=== PATIENT | female | born 1990 | race American Indian/Alaskan Native ===

== ENCOUNTER 2018-05-02 13:16 | Inpatient (IN) | payer MEDICAID ==
[2018-05-02 14:43] LABS: Color,Urine Yellow (Yellow)
[2018-05-02 14:44] LABS: Bilirubin,Urine NEG (Negative); Blood,Urine SM (Negative); Mucus,Urine FEW /HPF; Protein,Urine <15 mg/dL mg/dL (Negative)
[2018-05-02] MEDS ORDERED: LACTATED RINGERS 500 ML IV ONE (15:03)
[2018-05-02] MEDS ORDERED: BRETHINE SUB-Q PRN (15:37)
[2018-05-02] MEDS ORDERED: ZOFRAN IV PRN ×2 (15:37→20:46)
[2018-05-02] MEDS ORDERED: MINERAL OIL PO PRN (15:37)
[2018-05-02] MEDS ORDERED: BRETHINE IVP PRN (15:37)
[2018-05-02] MEDS ORDERED: AMPICILLIN/NS 2 GM/100 ML 2 GM/100 ML BAG IV ONE (16:00)
[2018-05-02] MEDS ORDERED: PITOCin/NS 30 UNIT/500ML 30 UNITS/500 ML BAG IV SCH (16:00)
[2018-05-02] MEDS ORDERED: XYLOCAINE 2% INFILTRATI ONE (16:00)
[2018-05-02] MEDS ORDERED: PITOCin/NS 20 UNIT/1000ML DRIP 20 UNITS/1,000 ML BAG IV SCH (16:00)
--- NOTE | 2018-05-02 16:11 | History and Physical Report ---
History of Present Illness Date of examination: 05/02/18 Date of admission: 05/02/18 15:20 Chief complaint: Contractions History of present illness: 27 yo AA Fe LMP 08/11/2017, KOFFI 05/18/2018 (LMP), 37 weeks 5 days, presents in spontaneous labor. O positive, Rubella Immune, VDRL non-reactive, HBsAg Negative, HIV Negative, GBS unknown Pt initiated late care with [employer] at 21 weeks gestation. She is co-managed with [facility] ([place], Family Hx Down Syndrome (NIPS: low risk, and Macrosomia). Known History of HSV2. Positive Chlamydia and Gonorrhea (C&T 01/13/18, JOHN Negative 02/02/18). Pt has been noncompliant with care. Last visit in office 03/14/18. Last visit with [facility] 03/27/18 (EFW 99%, 2758 grams). 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 denies: abnormal PAP smear, hepatitis B, hepatitis C, HIV, syphilis, trichomonas Social history: no significant social history, single, Lives alone, smoking, full code. denies: alcohol abuse, prescription drug abuse, IV drug use - Obstetrical History Expected Date of Delivery: 05/18/18 Actual Gestation: 37 Week(s) 5 Day(s) : 3 Para: 2 Hx # Term Pregnancies: 2 Number of Pregnancies: 0 Spontaneous Abortions: 0 Induced : 0 Number of Living Children: 2 #1 Infant Gender: Female year: 2,012 Birthweight: 2.863 kg Method of Delivery: Vaginal Gestational age at delivery: 41 Complications: none #2 Infant Gender: Female year: 2,017 Birthweight: 3.26 kg Method of Delivery: Vaginal Gestational age at delivery: 40 Complications: none Medications and Allergies Allergies Allergy/AdvReac Type Severity Reaction Status Date / Time No Known Allergies Allergy Verified 07/09/13 03:13 Home Medications Medication Instructions Recorded Confirmed Last Taken Type Valacyclovir HCl [Valacyclovir] 500 mg PO DAILY 07/09/13 07/09/13 07/08/13 10:00 History 500mg Active Meds: Active Medications Ephedrine Sulfate (Ephedrine Sulfate) 10 mg IV Q2M PRN PRN Reason: Hypotension Ampicillin Sodium (Polycillin/Ns 2 Gm/100 Ml) 2 gm in 100 mls @ 100 mls/hr IV ONCE ONE; Protocol Stop: 05/02/18 16:59 Last Admin: 05/02/18 15:44 Dose: 100 mls/hr Documented by: Ampicillin Sodium (Ampicillin/Ns 1 Gm/50 Ml) 1 gm in 50 mls @ 100 mls/hr IV Q4H CELSO; Protocol Lactated Ringer's (Lactated Ringers) 1,000 mls @ 125 mls/hr IV DIRECT CELSO Oxytocin/Sodium Chloride (Pitocin/Ns 20 Unit/1000ml Drip) 20 units in 1,000 mls @ 125 mls/hr IV DIRECT CELSO Oxytocin/Sodium Chloride (Pitocin/Ns 30 Unit/500ml) 30 units in 500 mls @ 1 mls/hr IV TITR CELSO; Protocol Lidocaine (Xylocaine 2%) 20 ml INFILTRATI ONCE ONE Stop: 05/02/18 15:38 Mineral Oil (Mineral Oil) 30 ml PO QHS PRN PRN Reason: Constipation Ondansetron HCl (Zofran) 4 mg IV Q8H PRN PRN Reason: Nausea And Vomiting Terbutaline Sulfate (Brethine) 0.25 mg SUB-Q ONCE PRN PRN Reason: Hyperstimulation/Hypertonicity Terbutaline Sulfate (Brethine) 0.25 mg IVP ONCE PRN PRN Reason: Hyperstimulation/Hypertonicity Review of Systems Eyes: normal appearance Cardiovascular: no chest pain, no shortness of breath Respiratory: no shortness of breath Breasts: normal Gastrointestinal: no nausea, no vomiting, no diarrhea, no constipation Genitourinary: normal appearance, no vaginal bleeding, no leakage of fluid, no pelvic pain, no genital sores Integumentary: no rash, no sores, no lesions - Vital Signs Vital signs: Vital Signs Pulse BP 72 131/80 05/02/18 14:00 05/02/18 14:00 Temp Pulse Resp BP Pulse Ox 98.8 F 61 20 129/77 05/02/18 14:04 05/02/18 15:06 05/02/18 14:04 05/02/18 15:06 - Physical Exam Breasts: Positive: normal Cardiovascular: Regular rate, Normal S1, Normal S2, No murmurs Lungs: Positive: Clear to auscultation, Normal air movement Abdomen: Positive: normal appearance, soft, normal bowel sounds. Negative: distention Genitourinary (Female): Positive: normal external genitalia, normal perenium Vulva: both: normal Vagina: Positive: normal moisture Uterus: Positive: enlarged (Gravid) Anus/Rectum: Positive: normal perianal skin Extremities: Positive: normal - Obstetrical FHR: category 1 Uterine Contraction Monitor Mode: External Cervical Dilatation: 6 (Per gantry rigger) Cervical Effacement Percentage: 50 station: -2 Uterine Contraction Pattern: Regular Uterine Tone Measurement Phase: Resting Uterine Contraction Intensity: Moderate Results All other labs normal. Assessment and Plan A: , IUP at 37w5d HSV2 positive: on valtrex 500 BID Spontaneous labor Category 1 tracing GBS unknown Macrosomia ([facility]; LV 03/27 2758 grams, 99%) Noncompliant care (last visit 03/14/18) P: Admit to Labor and delivery Routine labor orders GBS prophylaxis Urine drug screen Anticipate
[2018-05-02 16:39] LABS: Basophils # (Auto) 0.1 K/mm3 (0.0-0.1); Basophils % (Auto) 0.7 % (0.0-1.8); Eosinophils # (Auto) 0.1 K/mm3 (0.0-0.4); Eosinophils % (Auto) 0.6 % (0.0-4.3); Hematocrit 35.9 % (30.3-42.9); Hemoglobin 11.9 gm/dl (10.1-14.3); Lymphocytes % (Auto) 22.7 % (13.4-35.0); Mean Corpuscular HGB Conc 33 % (30-34); Mean Corpuscular Volume 86 fl (79-97); Monocytes # (Auto) 0.8 K/mm3 (0.0-0.8); Monocytes % (Auto) 9.5 % (0.0-7.3); Platelet Count 158 K/mm3 (140-440); Red Blood Count 4.19 M/mm3 (3.65-5.03); Red Cell Distribution Width 15.5 % (13.2-15.2)
[2018-05-02] MEDS ORDERED: LACTATED RINGERS 1,000 ML IV SCH (17:00)
[2018-05-02] MEDS ORDERED: SUBLIMAZE IV ONE (17:20)
--- NOTE | 2018-05-02 18:20 | Procedure Note ---
OB Delivery Note - Delivery Date of Delivery: 05/02/18 (17:54) Surgeon: VALENTINO CONNELL (STEFFI) Estimated blood loss: 200cc - Vaginal Delivery presentation: vertex Delivery position: OA Intrapartum events: meconium (NICU and RT in room at delivery) Delivery induction: none Delivery monitor: external FHT, external uterine Route of delivery: (17:54) Delivery placenta: spontaneous (17:56) Delivery cord: 3 umbilical vessels Episiotomy: none Delivery laceration: none Anesthesia: intravenous Delivery comments: vaible male, CARLOS position over intact perineum at 17:54. NICU Nurse and RT present at delivery d/t meconium stained fluid. Immediate lusty cry. Infant suction, dried and placed [id number] on mothers abdomen. Cord clamped and then cut by pt sister with guidance by myself. Cord blood collected per protocol. Spontaneous O[place] delivery of intact placenta at 17:56. FF@U-2. No tears or lacerations. EBL 200cc. Infant and mother left in stable condition in L&D. GBS unknown. Tx'd x1. - Infant A at 1 minute: 8 at 5 minutes: 9 Infant Gender: Male (3271 grams, 7lbs 3oz, 19")
[2018-05-02] MEDS ORDERED: AMPICILLIN/NS 1 GM/50 ML 1 GM/50 ML BAG IV SCH (19:40)
[2018-05-02] MEDS ORDERED: DULCOLAX PR PRN (20:46)
[2018-05-02] MEDS ORDERED: TYLENOL PO PRN (20:46)
[2018-05-02] MEDS ORDERED: TUCKS PAD TP PRN (20:46)
[2018-05-02] MEDS ORDERED: PHENERGAN PO PRN (20:46)
[2018-05-02] MEDS ORDERED: BENADRYL PO PRN (20:46)
[2018-05-02] MEDS ORDERED: MILK OF MAGNESIA PO PRN (20:46)
[2018-05-02] MEDS ORDERED: LANSINOH TP PRN (20:46)
[2018-05-02] MEDS ORDERED: NORCO 5/325 PO PRN (20:46)
[2018-05-02] MEDS ORDERED: SODIUM CHLORIDE FLUSH SYRINGE 10 ML IV NR (21:00)
[2018-05-02] MEDS: IBUPROFEN PO SCH (23:45)
[2018-05-03] MEDS: IBUPROFEN PO SCH ×4 (05:00→23:04)
[2018-05-03 10:03] LABS: Hematocrit 31.1 % (30.3-42.9); Hemoglobin 10.4 gm/dl (10.1-14.3)
--- NOTE | 2018-05-03 11:12 | Progress Note ---
Assessment and Plan A: PP Day #1 Stable P: Follow Routine Orders D/C home in the AM RTO in 6 Weeks Subjective - Subjective Date of service: 05/03/18 Patient reports: appetite normal, voiding normally, pain well controlled, flatus, ambulating normally Iraan: doing well, bottle feeding (and ) Objective - Vital Signs Latest vital signs: Vital Signs Temp Pulse Resp BP BP Pulse Ox 05/03/18 07:57 98.3 F 68 18 118/79 99 05/03/18 04:05 98.2 F 81 20 108/60 05/03/18 00:00 98.7 F 77 20 121/78 05/02/18 20:00 98.3 F 73 20 120/79 05/02/18 19:29 76 113/61 05/02/18 18:58 73 123/63 05/02/18 18:44 70 131/75 05/02/18 18:28 70 117/58 05/02/18 18:09 98.7 F 05/02/18 18:07 75 131/65 05/02/18 17:14 18 05/02/18 15:06 61 129/77 05/02/18 14:04 98.8 F 72 20 131/80 05/02/18 14:00 72 131/80 Intake and Output 05/02/18 05/03/18 05/03/18 22:59 06:59 14:59 Intake Total 240 480 660 Output Total 600 1200 Balance -360 -720 660 Intake: Oral 240 480 480 Intake, Free Water 180 Output: Urine 600 1200 Void 600 1200 Other: Total, Intake Amount 240 240 480 Total, Output Amount 600 600 # Voids Void 1 3 Estimated Blood Loss 200 - Exam Breasts: Present: normal Cardiovascular: Present: Regular rate Lungs: Present: Clear to auscultation, Normal air movement Abdomen: Present: normal appearance, soft Uterus: Present: normal, firm, fundal height below umbilicus Extremities: Present: normal - Labs Labs: Abnormal lab results 05/02/18 Range/Units 16:04 RDW 15.5 H (13.2-15.2) % [place] % (Auto) 9.5 H (0.0-7.3) %
--- NOTE | 2018-05-03 11:15 | Discharge Summary ---
Providers - Providers Date of Admission: 05/02/18 15:20 Date of discharge: 05/04/18 Attending physician: IMAN TOSCANO MD Primary care physician: IMAN TOSCANO MD Hospitalization Reason for admission: active labor Delivery: Episiotomy: none Laceration: none Other procedures: none complications: none Discharge diagnosis: IUP at term delivered [place] baby: male Condition at discharge: Good Disposition: DC-01 TO HOME OR SELFCARE Plan - Provider Discharge Summary Activity: routine, no sex for 6 weeks, no heavy lifting 4 weeks, no strenuous exercise Diet: routine Instructions: routine Additional instructions: [] Smoking cessation referral if applicable(refer to patient education folder for contact #) [] Refer to [facility] Booklet Call your doctor immediately for: * Fever > 100.5 * Heavy vaginal bleeding ( >1 pad per hour) * Severe persistent headache * Shortness of breath * Reddened, hot, painful area to leg or breast * Drainage or odor from incision. * Keep incision clean and dry at all times and follow doctor's instructions regarding bathing/showering - Follow up plan Follow up: IMAN TOSCANO MD [Primary Care Provider] - 6 Weeks
[2018-05-04] MEDS: IBUPROFEN PO SCH (05:59)
[2018-05-04 19:05] VITALS: BP 121/80
== END 2018-05-04 20:40 | disposition home or self-care (01) | DRG 774 ==
LOC: TRG 13:16 → LD 15:20 → OB 20:18
PROVIDERS: ADMIT Obstetrics & Gynecology; ATTEND Obstetrics & Gynecology
PROC: 10E0XZZ Delivery of Products of Conception, External Approach (ICD-10-PCS; principal; 2018-05-02)
DX: O77.0 Labor and delivery complicated by meconium in amniotic fluid (principal); O98.52 Other viral diseases complicating childbirth; O36.63X0 Maternal care for excessive fetal growth, third trimester, not applicable or unspecified; B00.9 Herpesviral infection, unspecified; Z3A.37 37 weeks gestation of pregnancy; Z37.0 Single live birth
CPT/HCPCS: 36415; 81001; 85014; 85018; 85025; 86592; 86850; 86900; 86901; G0378; A6250; J0290; J2590; J3010; J7120

== ENCOUNTER 2020-12-30 08:12 | Emergency (ER) | payer OTHER, MEDICAID ==
[2020-12-30 08:29] VITALS: BP 132/83
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
== END 2020-12-30 08:51 | disposition home or self-care (01) ==
LOC: ED 08:12
DX: M54.9 Dorsalgia, unspecified (principal); R51.9 Headache, unspecified; M54.2 Cervicalgia; F12.90 Cannabis use, unspecified, uncomplicated; V89.2XXA Person injured in unspecified motor-vehicle accident, traffic, initial encounter; Y93.89 Activity, other specified; Y92.89 Other specified places as the place of occurrence of the external cause; Y99.8 Other external cause status
CPT/HCPCS: 99282

== ENCOUNTER 2021-04-01 19:07 | Emergency (ER) | payer MEDICAID, OTHER ==
[2021-04-01 21:26] VITALS: BP 142/91
== END 2021-04-02 06:17 | disposition left against medical advice (07) ==
LOC: ED 19:07
DX: R11.10 Vomiting, unspecified (principal); Z53.21 Procedure and treatment not carried out due to patient leaving prior to being seen by health care provider

== ENCOUNTER 2021-11-16 07:53 | Inpatient (IN) | payer MEDICAID ==
[2021-11-16] MEDS ORDERED: TERBUTALINE 1 MG/1 ML INJ SUB-Q PRN (12:21)
[2021-11-16] MEDS ORDERED: LIDOCAINE (2%) 20 MG/1 ML VIAL 20 ML MDV INFILTRATI NR (13:00)
[2021-11-16] MEDS ORDERED: fentaNYL 100 MCG/2 ML INJ IV PRN (13:00)
[2021-11-16] MEDS ORDERED: ePHEDrine SULFATE 50 MG/1 ML INJ IV PRN (13:00)
[2021-11-16] MEDS ORDERED: METHYLERGONOVINE MALEATE 0.2 MG/ML VIAL IM PRN (13:00)
[2021-11-16] MEDS ORDERED: OXYTOCIN 10 UNIT/1 ML INJ IM PRN (13:00)
[2021-11-16] MEDS ORDERED: LACTATED RINGERS 1,000 ML IV SCH (13:00)
[2021-11-16] MEDS ORDERED: LOPERAMIDE 2 MG CAP PO PRN (13:00)
[2021-11-16] MEDS ORDERED: CARBOPROST TROMETHAMINE 250 MCG/1 ML INJ IM PRN (13:00)
[2021-11-16] MEDS ORDERED: ACETAMINOPHEN 325 MG TAB PO PRN (13:00)
[2021-11-16] MEDS ORDERED: OXYTOCIN DRIP 30 UNITS/500 ML BAG IV SCH (13:00)
[2021-11-16] MEDS ORDERED: BUTORPHANOL 2 MG/1 ML INJ IV PRN (13:00)
[2021-11-16] MEDS ORDERED: miSOPROStol 200 MCG TAB PR PRN (13:00)
[2021-11-16] MEDS ORDERED: MINERAL OIL 30 ML ORAL LIQD PO PRN (13:00)
[2021-11-16] MEDS ORDERED: AMPICILLIN/NS 2 GM/100 ML 2 GM/100 ML BAG IV ONE (13:09)
[2021-11-16 13:12] LABS: Basophils % (Auto) 0.4 % (0.0-1.8); Eosinophils # (Auto) 0.1 K/mm3 (0.0-0.4); Eosinophils % (Auto) 0.7 % (0.0-4.3); Hematocrit 33.7 % (30.3-42.9); Hemoglobin 11.2 gm/dl (10.1-14.3); Lymphocytes # (Auto) 2.1 K/mm3 (1.2-5.4); Lymphocytes % (Auto) 21.3 % (13.4-35.0); Mean Corpuscular HGB Conc 33 % (30-34); Mean Corpuscular Volume 82 fl (79-97); Monocytes # (Auto) 0.8 K/mm3 (0.0-0.8); Monocytes % (Auto) 8.6 % (0.0-7.3); Platelet Count 166 K/mm3 (140-440); Red Blood Count 4.13 M/mm3 (3.65-5.03); Red Cell Distribution Width 17.1 % (13.2-15.2)
--- NOTE | 2021-11-16 13:24 | History and Physical Report ---
History of Present Illness Date of examination: 11/16/21 Date of admission: 11/16 Chief complaint: Contrations History of present illness: 31 yo EDC 11/16 with c/o ctx x several days with increase intensity this am. No LOF or VB. Good FM. Pt. with care until 34 weeks. Abnormal 1 hour GTT. No 3hr GTT. H/o Herpes. Pt states no outbreak time several years. No valtrex at 36 weeks since pt. stopped care at 36 weeks. 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, herpes (2010), trichomonas (JOHN 05/05 neg) Family/Genetic History: diabetes, hypertension Social history: no significant social history - Obstetrical History Expected Date of Delivery: 11/16/21 Actual Gestation: 40 Week(s) 0 Day(s) : 4 Para: 3 Hx # Term Pregnancies: 3 Number of Pregnancies: 0 Spontaneous Abortions: 0 Number of Living Children: 3 #1 Infant Gender: Male year: 2,012 Birthweight: 2.95 kg Method of Delivery: Vaginal Gestational age at delivery: 41 Complications: none #2 Gender: Female year: 2,014 Birthweight: 3.19 kg Method of Delivery: Vaginal Gestational age at delivery: 40 Complications: none #3 Gender: Male year: 2,019 Birthweight: 3.19 kg Method of Delivery: Vaginal Gestational age at delivery: 38 Complications: none Medications and Allergies Allergies Allergy/AdvReac Type Severity Reaction Status Date / Time No Known Allergies Allergy Verified 04/01/21 21:21 Home Medications Medication Instructions Recorded Confirmed Last Taken Type No Known Home Medications [No 11/16/21 11/16/21 Unknown History Reported Home Medications] Active Meds: Active Medications Acetaminophen (Acetaminophen 325 Mg Tab) 650 mg PO Q4H PRN PRN Reason: Pain, Mild (1-3) Butorphanol Tartrate (Butorphanol 2 Mg/1 Ml Inj) 1 mg IV Q2H PRN PRN Reason: Pain, Moderate(4-6) LABOR PAIN Carboprost Tromethamine (Carboprost Tromethamine 250 Mcg/1 Ml Inj) 250 mcg IM ONCE PRN PRN Reason: Uterine Bleeding Ephedrine Sulfate (Ephedrine Sulfate 50 Mg/1 Ml Inj) 10 mg IV Q2M PRN PRN Reason: Hypotension Fentanyl (Fentanyl 100 Mcg/2 Ml Inj) 100 mcg IV Q2H PRN PRN Reason: Pain,Severe (7-10) LABOR PAIN Lactated Ringer's (Lactated Ringers) 1,000 mls @ 125 mls/hr IV DIRECT CELSO Oxytocin/Sodium Chloride (Pitocin/Ns 30 Unit/500ml) 30 units in 500 mls @ 0 mls/hr IV TITR CELSO Stop: 11/17/21 12:59 Ampicillin Sodium (Ampicillin/Ns 2 Gm/100 Ml) 2 gm in 100 mls @ 100 mls/hr IV ONCE ONE; Protocol Stop: 11/16/21 14:08 Ampicillin Sodium 1 gm/ Sodium (Chloride) 50 mls @ 200 mls/hr IV Q4HR CELSO; Protocol Lidocaine (Lidocaine (2%) 20 Mg/1 Ml Vial 20 Ml Mdv) 20 ml INFILTRATI ONCE NR Stop: 11/16/21 23:00 Loperamide HCl (Loperamide 2 Mg Cap) 2 mg PO ONCE PRN PRN Reason: give with Hemabate Methylergonovine Maleate (Methylergonovine Maleate 0.2 Mg/Ml Vial) 0.2 mg IM ONCE PRN PRN Reason: Uterine Bleeding Mineral Oil (Mineral Oil 30 Ml Oral Liqd) 30 ml PO QHS PRN PRN Reason: Constipation Misoprostol (Misoprostol 200 Mcg Tab) 800 mcg NM ONCE PRN PRN Reason: Uterine Bleeding Oxytocin (Oxytocin 10 Unit/1 Ml Inj) 10 unit IM ONCE PRN PRN Reason: Uterine Bleeding Terbutaline Sulfate (Terbutaline 1 Mg/1 Ml Inj) 0.25 mg SUB-Q ONCE PRN PRN Reason: Hyperstimulation/Hypertonicity Review of Systems All systems: negative Gastrointestinal: abdominal pain - Vital Signs Vital signs: Vital Signs Pulse Pulse Ox 82 98 11/16/21 08:14 11/16/21 08:14 Temp Pulse Resp BP Pulse Ox 97.5 F L 83 20 129/76 100 11/16/21 12:27 11/16/21 13:10 11/16/21 12:27 11/16/21 12:59 11/16/21 13:10 - Physical Exam Cardiovascular: Regular rate Vulva: right: normal Uterus: Positive: enlarged - Obstetrical FHR: category 1 Uterine Contraction Monitor Mode: External Cervical Dilatation: 6 Cervical Effacement Percentage: 75 station: -1 Uterine Contraction Frequency (min): irreg Uterine Contraction Pattern: Irregular Results Result Diagrams: 11/16/21 Unknown Abnormal lab results 11/16/21 Range/Units Unknown MCH 27 L (28-32) pg RDW 17.1 H (13.2-15.2) % [place] % (Auto) 8.6 H (0.0-7.3) % All other labs normal. Assessment and Plan A IUP @ 38 weeks Labor Obesity H/o herpes Maternal obesity Poor care Unknown GBS Abnormal 1hr GTT./ 3hr GTT not done. Most likely due to poor PNC P No herpetic lesion noted on exam Will treat for unknown GBS Anticipate
--- NOTE | 2021-11-16 15:49 | Progress Note ---
Assessment and Plan A IUP @ 40 weeks Labor Active labor Category II tracing P IV fluid bolus/ O2 Will monitor FHR tracing Anticipate Subjective - Subjective Date of service: 11/16/21 Principal diagnosis: IUP @ 40 weeks. Labor Interval history: C/o contractions Patient reports: contractions Objective - Vital Signs Vital Signs: Vital Signs - 12hr 11/16/21 11/16/21 11/16/21 08:14 08:17 08:18 Temperature Pulse Rate 82 74 80 Respiratory Rate Blood Pressure 132/74 Blood Pressure [Right] O2 Sat by Pulse 98 93 Oximetry O2 Sat by Pulse Oximetry [ Bilateral Throughout] 11/16/21 11/16/21 11/16/21 08:19 08:24 08:29 Temperature Pulse Rate 71 73 80 Respiratory Rate Blood Pressure Blood Pressure [Right] O2 Sat by Pulse 97 98 98 Oximetry O2 Sat by Pulse Oximetry [ Bilateral Throughout] 11/16/21 11/16/21 11/16/21 08:34 08:39 08:44 Temperature Pulse Rate 76 72 77 Respiratory Rate Blood Pressure Blood Pressure [Right] O2 Sat by Pulse 99 99 98 Oximetry O2 Sat by Pulse Oximetry [ Bilateral Throughout] 11/16/21 11/16/21 11/16/21 08:49 08:54 08:59 Temperature 98.0 F Pulse Rate 77 75 69 Respiratory 20 Rate Blood Pressure Blood Pressure 132/74 [Right] O2 Sat by Pulse 99 99 99 Oximetry O2 Sat by Pulse Oximetry [ Bilateral Throughout] 11/16/21 11/16/21 11/16/21 09:04 09:09 09:14 Temperature Pulse Rate 76 74 72 Respiratory Rate Blood Pressure Blood Pressure [Right] O2 Sat by Pulse 97 98 99 Oximetry O2 Sat by Pulse Oximetry [ Bilateral Throughout] 11/16/21 11/16/21 11/16/21 09:19 09:24 09:29 Temperature Pulse Rate 71 77 73 Respiratory Rate Blood Pressure Blood Pressure [Right] O2 Sat by Pulse 99 98 98 Oximetry O2 Sat by Pulse Oximetry [ Bilateral Throughout] 11/16/21 11/16/21 11/16/21 09:34 09:39 09:44 Temperature Pulse Rate 70 76 79 Respiratory Rate Blood Pressure Blood Pressure [Right] O2 Sat by Pulse 99 99 100 Oximetry O2 Sat by Pulse Oximetry [ Bilateral Throughout] 11/16/21 11/16/21 11/16/21 09:49 09:54 09:59 Temperature Pulse Rate 77 91 H 87 Respiratory Rate Blood Pressure Blood Pressure [Right] O2 Sat by Pulse 99 99 99 Oximetry O2 Sat by Pulse Oximetry [ Bilateral Throughout] 11/16/21 11/16/21 11/16/21 10:04 10:09 10:14 Temperature Pulse Rate 77 98 H 78 Respiratory Rate Blood Pressure Blood Pressure [Right] O2 Sat by Pulse 99 99 99 Oximetry O2 Sat by Pulse Oximetry [ Bilateral Throughout] 11/16/21 11/16/21 11/16/21 10:19 10:24 10:29 Temperature Pulse Rate 92 H 80 81 Respiratory Rate Blood Pressure Blood Pressure [Right] O2 Sat by Pulse 100 100 99 Oximetry O2 Sat by Pulse Oximetry [ Bilateral Throughout] 11/16/21 11/16/21 11/16/21 10:34 10:39 10:44 Temperature Pulse Rate 77 86 89 Respiratory Rate Blood Pressure Blood Pressure [Right] O2 Sat by Pulse 99 98 97 Oximetry O2 Sat by Pulse Oximetry [ Bilateral Throughout] 11/16/21 11/16/21 11/16/21 10:49 10:52 10:54 Temperature Pulse Rate 77 82 Respiratory Rate Blood Pressure Blood Pressure [Right] O2 Sat by Pulse 100 98 Oximetry O2 Sat by Pulse 100 Oximetry [ Bilateral Throughout] 11/16/21 11/16/21 11/16/21 10:58 10:59 11:04 Temperature Pulse Rate 90 87 78 Respiratory Rate Blood Pressure 118/64 Blood Pressure [Right] O2 Sat by Pulse 98 98 Oximetry O2 Sat by Pulse Oximetry [ Bilateral Throughout] 11/16/21 11/16/21 11/16/21 11:09 11:14 11:19 Temperature Pulse Rate 81 75 75 Respiratory Rate Blood Pressure Blood Pressure [Right] O2 Sat by Pulse 99 100 99 Oximetry O2 Sat by Pulse Oximetry [ Bilateral Throughout] 11/16/21 11/16/21 11/16/21 11:24 11:27 11:29 Temperature Pulse Rate 85 77 94 H Respiratory Rate Blood Pressure 127/69 Blood Pressure [Right] O2 Sat by Pulse 99 98 Oximetry O2 Sat by Pulse Oximetry [ Bilateral Throughout] 11/16/21 11/16/21 11/16/21 11:34 11:39 11:44 Temperature Pulse Rate 81 80 72 Respiratory Rate Blood Pressure Blood Pressure [Right] O2 Sat by Pulse 98 99 98 Oximetry O2 Sat by Pulse Oximetry [ Bilateral Throughout] 11/16/21 11/16/21 11/16/21 12:05 12:10 12:15 Temperature Pulse Rate 81 83 78 Respiratory Rate Blood Pressure Blood Pressure [Right] O2 Sat by Pulse 100 98 99 Oximetry O2 Sat by Pulse Oximetry [ Bilateral Throughout] 11/16/21 11/16/21 11/16/21 12:20 12:25 12:27 Temperature 97.5 F L Pulse Rate 89 78 Respiratory 20 Rate Blood Pressure Blood Pressure [Right] O2 Sat by Pulse 99 99 Oximetry O2 Sat by Pulse Oximetry [ Bilateral Throughout] 11/16/21 11/16/21 11/16/21 12:28 12:30 12:35 Temperature Pulse Rate 70 79 97 H Respiratory Rate Blood Pressure 118/59 Blood Pressure [Right] O2 Sat by Pulse 100 99 Oximetry O2 Sat by Pulse Oximetry [ Bilateral Throughout] 11/16/21 11/16/21 11/16/21 12:40 12:45 12:50 Temperature Pulse Rate 82 90 75 Respiratory Rate Blood Pressure Blood Pressure [Right] O2 Sat by Pulse 98 99 99 Oximetry O2 Sat by Pulse Oximetry [ Bilateral Throughout] 11/16/21 11/16/21 11/16/21 12:55 12:59 13:00 Temperature Pulse Rate 84 80 76 Respiratory Rate Blood Pressure 129/76 Blood Pressure [Right] O2 Sat by Pulse 97 99 Oximetry O2 Sat by Pulse Oximetry [ Bilateral Throughout] 11/16/21 11/16/21 11/16/21 13:05 13:10 13:15 Temperature Pulse Rate 82 83 80 Respiratory Rate Blood Pressure Blood Pressure [Right] O2 Sat by Pulse 100 100 99 Oximetry O2 Sat by Pulse Oximetry [ Bilateral Throughout] 11/16/21 11/16/21 11/16/21 13:20 13:25 13:27 Temperature Pulse Rate 85 79 80 Respiratory Rate Blood Pressure 121/77 Blood Pressure [Right] O2 Sat by Pulse 99 98 Oximetry O2 Sat by Pulse Oximetry [ Bilateral Throughout] 11/16/21 11/16/21 11/16/21 13:30 13:35 13:40 Temperature Pulse Rate 74 82 80 Respiratory Rate Blood Pressure Blood Pressure [Right] O2 Sat by Pulse 99 99 98 Oximetry O2 Sat by Pulse Oximetry [ Bilateral Throughout] 11/16/21 11/16/21 11/16/21 13:45 13:50 13:55 Temperature Pulse Rate 85 92 H 72 Respiratory Rate Blood Pressure Blood Pressure [Right] O2 Sat by Pulse 98 99 99 Oximetry O2 Sat by Pulse Oximetry [ Bilateral Throughout] 11/16/21 11/16/21 11/16/21 13:57 14:00 14:05 Temperature Pulse Rate 78 85 78 Respiratory Rate Blood Pressure 128/74 Blood Pressure [Right] O2 Sat by Pulse 100 98 Oximetry O2 Sat by Pulse Oximetry [ Bilateral Throughout] 11/16/21 11/16/21 11/16/21 14:10 14:15 14:20 Temperature Pulse Rate 95 H 98 H 96 H Respiratory Rate Blood Pressure Blood Pressure [Right] O2 Sat by Pulse 99 98 97 Oximetry O2 Sat by Pulse Oximetry [ Bilateral Throughout] 11/16/21 11/16/21 11/16/21 14:25 14:28 14:30 Temperature Pulse Rate 77 72 85 Respiratory Rate Blood Pressure 114/66 Blood Pressure [Right] O2 Sat by Pulse 98 99 Oximetry O2 Sat by Pulse Oximetry [ Bilateral Throughout] 11/16/21 11/16/21 11/16/21 14:35 14:40 14:45 Temperature Pulse Rate 85 76 80 Respiratory Rate Blood Pressure Blood Pressure [Right] O2 Sat by Pulse 99 99 98 Oximetry O2 Sat by Pulse Oximetry [ Bilateral Throughout] 11/16/21 11/16/21 11/16/21 14:50 14:55 14:57 Temperature Pulse Rate 79 102 H 73 Respiratory Rate Blood Pressure 123/77 Blood Pressure [Right] O2 Sat by Pulse 99 99 Oximetry O2 Sat by Pulse Oximetry [ Bilateral Throughout] 11/16/21 11/16/21 11/16/21 15:00 15:10 15:15 Temperature Pulse Rate 89 86 92 H Respiratory Rate Blood Pressure Blood Pressure [Right] O2 Sat by Pulse 98 99 98 Oximetry O2 Sat by Pulse Oximetry [ Bilateral Throughout] 11/16/21 11/16/21 11/16/21 15:20 15:25 15:28 Temperature Pulse Rate 83 83 81 Respiratory Rate Blood Pressure 124/85 Blood Pressure [Right] O2 Sat by Pulse 99 97 Oximetry O2 Sat by Pulse Oximetry [ Bilateral Throughout] 11/16/21 11/16/21 11/16/21 15:30 15:35 15:40 Temperature Pulse Rate 81 109 H 76 Respiratory Rate Blood Pressure Blood Pressure [Right] O2 Sat by Pulse 99 99 98 Oximetry O2 Sat by Pulse Oximetry [ Bilateral Throughout] - Exam FHR: category 2 (occasional variable decel) Uterine Contraction Monitor Mode: External Cervical Dilatation: 6 Cervical Effacement Percentage: 75 station: -1 Uterine Contraction Pattern: Irregular Uterine Contraction Intensity: Moderate - Labs Labs: Abnormal Labs 11/16/21 Unknown MCH 27 L RDW 17.1 H [place] % (Auto) 8.6 H Laboratory Results - last 24 hr 11/16/21 11/16/21 11/16/21 10:30 10:30 Unknown WBC 9.6 RBC 4.13 Hgb 11.2 Hct 33.7 MCV 82 MCH 27 L MCHC 33 RDW 17.1 H Plt Count 166 Lymph % (Auto) 21.3 [place] % (Auto) 8.6 H Eos % (Auto) 0.7 Baso % (Auto) 0.4 Lymph # (Auto) 2.1 [place] # (Auto) 0.8 Eos # (Auto) 0.1 Baso # (Auto) 0.0 Seg Neutrophils % 69.0 Seg Neutrophils # 6.7 SARS-CoV-2 (PCR) Negative Blood Type O POSITIVE Antibody Screen Negative
[2021-11-16] MEDS ORDERED: AMPICILLIN/NS 1 GM/50 ML 1 GM/50 ML BAG IV SCH (17:00)
[2021-11-16] MEDS ORDERED: KETOROLAC 30 MG/1 ML INJ IV ONE (18:00)
--- NOTE | 2021-11-16 18:12 | Procedure Note ---
OB Delivery Note - Vaginal Delivery presentation: vertex Delivery position: OA Intrapartum events: none Delivery induction: none Delivery monitor: external FHT, external uterine Route of delivery: Delivery placenta: spontaneous Delivery cord: nuchal cord Episiotomy: none Delivery laceration: 1st degree Delivery repair: vicryl Anesthesia: local (2% lidocaine) Delivery comments: Arrived in labor room. Pt. screaming and laying on her side. Infant's head almost out of vagina. Patient pushing. Infant's head delivered without complication. Nuchal cord noted. Unable to reduced cord since pt. pushing and out of control. Infant's body delivered. Nuchal cord reduced. Cord clamped and cut. handed off to nurse. Meconium noted. Placenta delivered spontaneously and intact. Uterus firm. First degree perineal laceration repair with 2-0 vicryl. Good hemostasis. Pt. tolerated delivery well. EBL - 500ml.
[2021-11-16] MEDS ORDERED: HYDROcodone/ACETAMINOPHEN 5-325 MG TAB PO PRN (22:52)
[2021-11-16] MEDS ORDERED: IBUPROFEN 800 MG TAB PO PRN (22:52)
[2021-11-17] MEDS ORDERED: BENZOCAINE/MENTHOL 20/0.5% TOP SPRAY 56 GM TP PRN (04:00)
[2021-11-17] MEDS ORDERED: WITCH HAZEL/ GLYCERIN PAD TP PRN (04:00)
[2021-11-17 09:27] LABS: Hematocrit 30.9 % (30.3-42.9); Hemoglobin 10.2 gm/dl (10.1-14.3)
--- NOTE | 2021-11-17 14:32 | Progress Note ---
Assessment and Plan PPD#1 1. Routine care 2. Will discharge home tomorrow per pt choice All questions encouraged and answered Subjective Date of service: 11/17/21 Principal diagnosis: PPD#1 Interval history: pt has no complaints but wants to go home tomorrow. pt is bottle feeding. denies pelvic pain. vag bleed like a period Objective - Constitutional Vitals: Vital Signs - 12hr 11/17/21 11/17/21 11/17/21 03:20 04:51 07:41 Temperature 98.0 F 98.2 F Pulse Rate 76 95 H Respiratory 16 20 19 Rate Blood Pressure 115/71 106/52 O2 Sat by Pulse 96 99 Oximetry O2 Sat by Pulse Oximetry [ Bilateral Throughout] 11/17/21 11/17/21 08:19 12:17 Temperature 98.0 F Pulse Rate 96 H Respiratory 18 Rate Blood Pressure 120/75 O2 Sat by Pulse 96 Oximetry O2 Sat by Pulse 99 Oximetry [ Bilateral Throughout] General appearance: Present: no acute distress - Neck Neck: normal ROM - Respiratory Respiratory effort: normal - Breasts Breasts: deferred - Cardiovascular Rhythm: regular Extremities: No edema - Gastrointestinal General gastrointestinal: Present: soft, non-tender - Genitourinary Female genitourinary: other (fundus non-tender, firm 2cm below the umbilicus) - Integumentary Integumentary: warm, dry - Neurologic Neurologic: moves all extremities - Psychiatric Psychiatric: cooperative - Labs CBC & Chem 7: 11/17/21 07:53 Medications & Allergies - Medications Allergies/Adverse Reactions: Allergies No Known Allergies Allergy (Verified 04/01/21 21:21) Home Medications: Home Medications Medication Instructions Recorded Confirmed Last Taken Type No Known Home Medications [No 11/16/21 11/16/21 Unknown History Reported Home Medications] Active Medications: Generic Name Dose Route Start Last Admin Trade Name Freq PRN Reason Stop Dose Admin Acetaminophen 650 mg 11/16/21 13:00 Acetaminophen 325 Mg Tab PO Q4H PRN Pain, Mild (1-3) Hydrocodone Bitart/Acetaminophen 1 each 11/16/21 22:52 11/17/21 03:20 Hydrocodone/Acetaminophen 5-325 Mg Tab PO 1 each Q6H PRN Administration Pain, Moderate (4-6) Benzocaine/Menthol 1 spray 11/17/21 04:00 11/17/21 06:08 Benzocaine/Menthol 20/0.5% Top [facility] 56 Gm TP 1 spray TID PRN Administration Episiotomy Pain Butorphanol Tartrate 1 mg 11/16/21 13:00 Butorphanol 2 Mg/1 Ml Inj IV Q2H PRN Pain, Moderate(4-6) LABOR PAIN Carboprost Tromethamine 250 mcg 11/16/21 13:00 Carboprost Tromethamine 250 Mcg/1 Ml Inj IM ONCE PRN Uterine Bleeding Ephedrine Sulfate 10 mg 11/16/21 13:00 Ephedrine Sulfate 50 Mg/1 Ml Inj IV Q2M PRN Hypotension Fentanyl 100 mcg 11/16/21 13:00 11/16/21 15:47 Fentanyl 100 Mcg/2 Ml Inj IV 100 mcg Q2H PRN Administration Pain,Severe (7-10) LABOR PAIN Lactated Ringer's 1,000 mls @ 125 mls/hr 11/16/21 13:00 11/16/21 13:33 Lactated Ringers IV 125 mls/hr DIRECT CELSO Administration Ampicillin Sodium 1 gm in 50 mls @ 200 mls/hr 11/16/21 17:00 11/16/21 17:16 Ampicillin/Ns 1 Gm/50 Ml IV Not Given Q4H CELSO Protocol Ibuprofen 800 mg 11/16/21 22:52 Ibuprofen 800 Mg Tab PO Q8H PRN Pain, Mild (1-3) Loperamide HCl 2 mg 11/16/21 13:00 Loperamide 2 Mg Cap PO ONCE PRN give with Hemabate Methylergonovine Maleate 0.2 mg 11/16/21 13:00 Methylergonovine Maleate 0.2 Mg/Ml Vial IM ONCE PRN Uterine Bleeding Mineral Oil 30 ml 11/16/21 13:00 Mineral Oil 30 Ml Oral Liqd PO QHS PRN Constipation Misoprostol 800 mcg 11/16/21 13:00 Misoprostol 200 Mcg Tab VT ONCE PRN Uterine Bleeding Oxytocin 10 unit 11/16/21 13:00 Oxytocin 10 Unit/1 Ml Inj IM ONCE PRN Uterine Bleeding Terbutaline Sulfate 0.25 mg 11/16/21 12:21 Terbutaline 1 Mg/1 Ml Inj SUB-Q ONCE PRN Hyperstimulation/Hypertonicity Elisha Jonna/Glycerin 1 each 11/17/21 04:00 11/17/21 06:08 Witch Jonna/ Glycerin Pad TP 1 each PRN PRN Administration Hemorrhoids
--- NOTE | 2021-11-18 10:33 | Progress Note ---
Assessment and Plan PPD#2 doing well 1. Discharge pt home Subjective Date of service: 11/18/21 Principal diagnosis: PPD#2 Interval history: no complaints Objective - Constitutional Vitals: Vital Signs - 12hr 11/18/21 11/18/21 11/18/21 00:42 08:00 08:08 Temperature 98.0 F 98.0 F Pulse Rate 80 79 Respiratory 16 18 Rate Blood Pressure 129/78 122/67 O2 Sat by Pulse 99 98 Oximetry O2 Sat by Pulse 98 Oximetry [ Bilateral Throughout] General appearance: Present: no acute distress - Respiratory Respiratory effort: normal - Breasts Breasts: deferred - Cardiovascular Rhythm: regular - Neurologic Neurologic: moves all extremities - Psychiatric Psychiatric: cooperative - Labs CBC & Chem 7: 11/17/21 07:53 Medications & Allergies - Medications Allergies/Adverse Reactions: Allergies No Known Allergies Allergy (Verified 04/01/21 21:21) Home Medications: Home Medications Medication Instructions Recorded Confirmed Last Taken Type No Known Home Medications [No 11/16/21 11/16/21 Unknown History Reported Home Medications] Active Medications: Generic Name Dose Route Start Last Admin Trade Name Freq PRN Reason Stop Dose Admin Acetaminophen 650 mg 11/16/21 13:00 Acetaminophen 325 Mg Tab PO Q4H PRN Pain, Mild (1-3) Hydrocodone Bitart/Acetaminophen 1 each 11/16/21 22:52 11/17/21 03:20 Hydrocodone/Acetaminophen 5-325 Mg Tab PO 1 each Q6H PRN Administration Pain, Moderate (4-6) Benzocaine/Menthol 1 spray 11/17/21 04:00 11/17/21 06:08 Benzocaine/Menthol 20/0.5% Top [place] 56 Gm TP 1 spray TID PRN Administration Episiotomy Pain Butorphanol Tartrate 1 mg 11/16/21 13:00 Butorphanol 2 Mg/1 Ml Inj IV Q2H PRN Pain, Moderate(4-6) LABOR PAIN Carboprost Tromethamine 250 mcg 11/16/21 13:00 Carboprost Tromethamine 250 Mcg/1 Ml Inj IM ONCE PRN Uterine Bleeding Ephedrine Sulfate 10 mg 11/16/21 13:00 Ephedrine Sulfate 50 Mg/1 Ml Inj IV Q2M PRN Hypotension Fentanyl 100 mcg 11/16/21 13:00 11/16/21 15:47 Fentanyl 100 Mcg/2 Ml Inj IV 100 mcg Q2H PRN Administration Pain,Severe (7-10) LABOR PAIN Lactated Ringer's 1,000 mls @ 125 mls/hr 11/16/21 13:00 11/16/21 13:33 Lactated Ringers IV 125 mls/hr DIRECT CELSO Administration Ampicillin Sodium 1 gm in 50 mls @ 200 mls/hr 11/16/21 17:00 11/16/21 17:16 Ampicillin/Ns 1 Gm/50 Ml IV Not Given Q4H CELSO Protocol Ibuprofen 800 mg 11/16/21 22:52 Ibuprofen 800 Mg Tab PO Q8H PRN Pain, Mild (1-3) Loperamide HCl 2 mg 11/16/21 13:00 Loperamide 2 Mg Cap PO ONCE PRN give with Hemabate Methylergonovine Maleate 0.2 mg 11/16/21 13:00 Methylergonovine Maleate 0.2 Mg/Ml Vial IM ONCE PRN Uterine Bleeding Mineral Oil 30 ml 11/16/21 13:00 Mineral Oil 30 Ml Oral Liqd PO QHS PRN Constipation Misoprostol 800 mcg 11/16/21 13:00 Misoprostol 200 Mcg Tab NM ONCE PRN Uterine Bleeding Oxytocin 10 unit 11/16/21 13:00 Oxytocin 10 Unit/1 Ml Inj IM ONCE PRN Uterine Bleeding Terbutaline Sulfate 0.25 mg 11/16/21 12:21 Terbutaline 1 Mg/1 Ml Inj SUB-Q ONCE PRN Hyperstimulation/Hypertonicity Witch Jonna/Glycerin 1 each 11/17/21 04:00 11/17/21 06:08 Witch Jonna/ Glycerin Pad TP 1 each PRN PRN Administration Hemorrhoids
--- NOTE | 2021-11-18 10:41 | Discharge Summary ---
Providers - Providers Date of Admission: 11/16/21 12:21 Date of discharge: 11/18/21 Attending physician: HARPREET ADAIR MD Primary care physician: HARPREET ADAIR MD Hospitalization Reason for admission: IUP at term Delivery: Episiotomy: none Laceration: 1st degree complications: none Discharge diagnosis: IUP at term delivered [place] baby: female Hospital course: Term pt in labor and pt had uncomplicated vag delivery, and uneventful course Condition at discharge: Good Disposition: 01 HOME / SELF CARE / HOMELESS - Discharge Diagnoses (1) (spontaneous vaginal delivery) Status: Acute Plan - Provider Discharge Summary Additional instructions: [] Smoking cessation referral if applicable(refer to patient education folder for contact #) [] Refer to [facility] Booklet Call your doctor immediately for: * Fever > 100.5 * Heavy vaginal bleeding ( >1 pad per hour) * Severe persistent headache * Shortness of breath * Reddened, hot, painful area to leg or breast * Drainage or odor from incision. * Keep incision clean and dry at all times and follow doctor's instructions regarding bathing/showering - Follow up plan Follow up: HARPREET ADAIR MD [Primary Care Provider] - 7 Days
[2021-11-18 17:00] VITALS: BP 123/70
== END 2021-11-18 18:00 | disposition home or self-care (01) | DRG 774 ==
LOC: TRG 07:53 → LD 07:55 → TRG 13:25 → OB 20:05
PROVIDERS: ADMIT Obstetrics & Gynecology; ATTEND Obstetrics & Gynecology
PROC: 10E0XZZ Delivery of Products of Conception, External Approach (ICD-10-PCS; principal; 2021-11-16)
PROC: 0HQ9XZZ Repair Perineum Skin, External Approach (ICD-10-PCS; 2021-11-16)
DX: O69.81X0 Labor and delivery complicated by cord around neck, without compression, not applicable or unspecified (principal); O98.32 Other infections with a predominantly sexual mode of transmission complicating childbirth; Z37.0 Single live birth; Z20.822 Contact with and (suspected) exposure to COVID-19; A60.00 Herpesviral infection of urogenital system, unspecified; O99.214 Obesity complicating childbirth; Z3A.38 38 weeks gestation of pregnancy; O70.0 First degree perineal laceration during delivery
CPT/HCPCS: 36415; 85014; 85018; 85025; 86850; 86900; 86901; G0378; J3490; J0290; J1885; J2590; J3010; J7120; U0003